=== PATIENT | female | born 1955 | race Two or more races ===

== ENCOUNTER → 2023-01-21 | Day surgery (SDC) | payer BC | END | disposition home or self-care (01) | LOC: FMAMMOTONE 12:36 | PROVIDERS: ATTEND Internal Medicine Nephrology | PROC: 0HBU3ZX Excision of Left Breast, Percutaneous Approach, Diagnostic (ICD-10-PCS; principal; 2023-01-21) | DX: D05.12 Intraductal carcinoma in situ of left breast (principal); N60.92 Unspecified benign mammary dysplasia of left breast; N64.89 Other specified disorders of breast; R92.0 Mammographic microcalcification found on diagnostic imaging of breast | CPT/HCPCS: 19081; 76098-TC-FY; 87899; 88305-TC; 88342-TC; A4648 ==

== ENCOUNTER → 2023-03-08 | Day surgery (SDC) | payer BC, OTHER | END | disposition home or self-care (01) | LOC: JRADUS-SUR 10:00 | PROVIDERS: ATTEND Surgery Surgical Oncology | PROC: BH01ZZZ Plain Radiography of Left Breast (ICD-10-PCS; principal; 2023-03-08) | DX: D05.12 Intraductal carcinoma in situ of left breast (principal) | CPT/HCPCS: 19281; A4648 ==

== ENCOUNTER 2023-03-10 04:13 | Day surgery (SDC) | payer BC ==
[2023-03-04 11:49] VITALS: BMI 24.5
[2023-03-10] MEDS ORDERED: LIDOCAINE 1%/EPI 1:100000 (20 ML MULTI DOSE VIAL) ONE (07:16)
[2023-03-10] MEDS ORDERED: BENZOIN/ALOE VERA/STORAX/TOLU 58 ML BOTTLE ONE (07:16)
[2023-03-10] MEDS ORDERED: PROMETHAZINE HCL 25 MG/1 ML VIAL IVPB PRN (07:21)
[2023-03-10] MEDS ORDERED: ONDANSETRON 4 MG/2 ML VIAL IVPUSH PRN (07:21)
[2023-03-10] MEDS ORDERED: oxyCODONE HCL 5 MG TABLET PO PRN (07:23)
[2023-03-10] MEDS ORDERED: LACTATED RINGERS SOLUTION 1,000 ML IV SCH (07:30)
[2023-03-10] MEDS ORDERED: PROPOFOL 80 ML ONE (07:50)
[2023-03-10] MEDS ORDERED: DEXAMETHASONE SOD PHOSPHATE 4 MG/1 ML VIAL ONE (07:50)
[2023-03-10] MEDS ORDERED: LIDOCAINE HCL/PF 2% SDV 5ML VIAL ONE (07:50)
[2023-03-10] MEDS ORDERED: MIDAZOLAM HCL 2 MG/2 ML SINGLE DOSE VIAL ONE (07:51)
[2023-03-10] MEDS ORDERED: PROPOFOL 20 ML ONE (07:55)
[2023-03-10] MEDS ORDERED: ACETAMINOPHEN INJECTION 100 ML IVPB ONE (07:58)
[2023-03-10] MEDS ORDERED: BUPIVACAINE HCL/PF 0.5% (5MG/ML) 10 ML VIAL IJ ONE (08:56)
[2023-03-10 10:43] VITALS: RESP 20
[2023-03-10 12:17] VITALS: BP 105/57; PULSE 80; TEMP 97.1
== END 2023-03-10 11:45 | disposition home or self-care (01) ==
LOC: JASU-SURG 04:13
PROVIDERS: ATTEND Surgery Surgical Oncology
PROC: 0HBU0ZZ Excision of Left Breast, Open Approach (ICD-10-PCS; principal; 2023-03-10 08:00)
DX: D05.12 Intraductal carcinoma in situ of left breast (principal)
CPT/HCPCS: 76098-TC-FY; 94760

== ENCOUNTER 2023-09-23 04:33 | Day surgery (SDC) | payer BC ==
[2023-09-21 15:43] VITALS: BMI 23.6
[2023-09-23 10:09] VITALS: TEMP 97
[2023-09-23 10:12] VITALS: RESP 18
[2023-09-23 10:13] VITALS: BP 108/59; PULSE 60
== END 2023-09-23 10:30 | disposition home or self-care (01) ==
LOC: JASU-ENDO 04:33
PROVIDERS: ATTEND Internal Medicine Gastroenterology
PROC: 0DJD8ZZ Inspection of Lower Intestinal Tract, Via Natural or Artificial Opening Endoscopic (ICD-10-PCS; principal; 2023-09-23 08:30)
DX: Z12.11 Encounter for screening for malignant neoplasm of colon (principal)